=== PATIENT | female | born 1945 | race Caucasian/White ===

== ENCOUNTER → 2017-01-21 | Outpatient (CLI) | payer OTHER | LOC: BMCIMAGING 12:31 | PROVIDERS: ATTEND Internal Medicine | DX: Z12.31 Encounter for screening mammogram for malignant neoplasm of breast (principal) | CPT/HCPCS: G0202 ==

== ENCOUNTER 2017-09-10 15:52 | Emergency (ER) | payer OTHER ==
[2017-09-10] MEDS ORDERED: NS 500 ML IV ONE (16:36)
--- NOTE | 2017-09-10 16:39 | CPEKG ---
Heart Rate: 58 RR Interval: 1034 P-R Interval: 188 QRSD Interval: 114 QT Interval: 456 QTC Interval: 448 P [place]: 9 QRS [place]: 52 T Wave [place]: 32 EKG Severity - ABNORMAL ECG - EKG Impression: SINUS RHYTHM EKG Impression: NONSPECIFIC INTRAVENTRICULAR CONDUCTION DELAY Electronically Signed By: Mac Barrera 11-Sep-2017 06:53:04
--- NOTE | 2017-09-10 16:48 | EDPHY ---
HPI/HX/ROS/PE/MDM Narrative: CHIEF COMPLAINT: "I really have no idea," leg cramping, possible syncope HPI: The patient is a 72 y/o female with a history of syncopal episodes arriving with her complaining of bilateral leg cramping and dizziness following a possible syncopal episode while lying down this afternoon around 15: 00, about 2 hours ago. She says, "I was laying down and it was like I passed out , not like I fell asleep. I came to with a start and both of my legs and calves were in knots." She does not know how long she was unconscious for. She then sat up and felt dizzy like the room was spinning. She was eventually able to stand up, but then laid down on bathroom floor because of the dizziness. She then noticed her "heart beating hard" so she took an aspirin and found her . At this point she was nauseated and was noticed she was wet, but she's unsure if she was incontinent or lied down in water while in the bathroom. She also had some diffuse shakiness and tingling in toes and fingers bilaterally. Symptoms have improved somewhat, but she feels like she would be dizzy if she tried to stand up right now. She says, "right now my body is not my body. It's just not functioning well." No chest pain, balance issues, coordination issues, confusion, speech difficulty, vision changes, urinary symptoms, abdominal pain, vomiting, diarrhea. She denies prior history of [place], arrhythmias, or stroke. REVIEW OF SYSTEMS: Aside from elements discussed in the HPI, a comprehensive 10-point review of systems was reviewed and is negative. PMH: Hypertension, hyperlipidemia, syncopal episodes, right wrist surgery, appendectomy, c-sections x2, hysterectomy SOCIAL HISTORY: Former smoker. at bedside. Prior medical records reviewed including ED visit 02/06/15 for head injury. PHYSICAL EXAM: General:Patient is alert, in no acute distress. ENT:Eyes are normal to inspection. ENT inspection normal. Neck: Normal inspection. Full range of motion. Respiratory:No respiratory distress. Breath sounds normal bilaterally. Cardiovascular: Regular rate and rhythm. Strong peripheral pulses. Normal cap refill. Abdomen:The abdomen is nontender to palpation. There are no peritoneal signs. Back: Normal to inspection. No tenderness to palpation. Skin: Normal color. No rash. Warm and dry. Extremities: Normal appearance. Full range of motion. Neuro: Oriented x3. Normal motor function. Normal sensory function. No pronator drift. Normal [id number]. Normal [id number]. ED Course: This is a 72 y/o female presenting for evaluation of bilateral leg cramping, possible syncopal episode while lying down, and dizziness this afternoon. She has some difficulty clearly describing her symptoms, but does feel somewhat improved at this time. Her exam is unremarkable. Plan for IV, labs, EKG, head CT to rule out concerning causes for syncope & dizziness. The 12 lead EKG was interpreted by myself. Sinus mechanism rate 58. See hard copy and/or "tracemaster" electronic copy for interpretation. Head CT negative. Labs unremarkable. Reassessed patient and discussed work up. I've found no concerning causes for her symptoms. She has been able to walk through the department without issue and is currently asymptomatic. Offered admission for further investigation of symptoms, but she declined. She feels comfortable returning home and following up with her PCP next week for unimproved symptoms. Return precautions discussed. - Data Points Imaging Results: Imaging Impressions Head CT 09/10/17 17:35 Impression: Negative. No acute intracranial hemorrhage or evidence of ischemia. Findings discussed with Emergency Department physician, Hamlet Bonds MD at 09/10/2017 17:56. Imaging: Discussed imaging studies w/ internet sales associate Radiologist, I viewed and interpreted images myself Laboratory Results: Laboratory Results 09/10/17 17:13 09/10/17 17:13 09/10/17 09/10/17 09/10/17 17:13 17:13 17:12 WBC 9.48 10^3/uL 10^3/uL (3.80-9.50) RBC 4.91 10^6/uL 10^6/uL (4.18-5.33) Hgb 14.8 g/dL g/dL (12.6-16.3) Hct 43.1 % % (38.0-47.0) MCV 87.8 fL fL (81.5-99.8) MCH 30.1 pg pg (27.9-34.1) MCHC 34.3 g/dL g/dL (32.4-36.7) RDW 14.2 % % (11.5-15.2) Plt Count 373 10^3/uL 10^3/uL (150-400) MPV 9.3 fL fL (8.7-11.7) Neut % (Auto) 81.9 % H % (39.3-74.2) Lymph % (Auto) 12.2 % L % (15.0-45.0) [place] % (Auto) 5.0 % % (4.5-13.0) Eos % (Auto) 0.2 % L % (0.6-7.6) Baso % (Auto) 0.4 % % (0.3-1.7) Nucleat RBC Rel Count 0.0 % % (0.0-0.2) Absolute Neuts (auto) 7.76 10^3/uL H 10^3/uL (1.70-6.50) Absolute Lymphs (auto) 1.16 10^3/uL 10^3/uL (1.00-3.00) Absolute Monos (auto) 0.47 10^3/uL 10^3/uL (0.30-0.80) Absolute Eos (auto) 0.02 10^3/uL L 10^3/uL (0.03-0.40) Absolute Basos (auto) 0.04 10^3/uL 10^3/uL (0.02-0.10) Absolute Nucleated RBC 0.00 10^3/uL 10^3/uL (0-0.01) Immature Gran % 0.3 % % (0.0-1.1) Immature Gran # 0.03 10^3/uL 10^3/uL (0.00-0.10) Sodium 138 mEq/L mEq/L (135-145) Potassium 4.1 mEq/L mEq/L (3.3-5.0) Chloride 100 mEq/L mEq/L (97-110) Carbon Dioxide 19 mEq/l L mEq/l (22-31) Anion Gap 19 mEq/L H mEq/L (8-16) BUN 18 mg/dL mg/dL (7-23) Creatinine 0.9 mg/dL mg/dL (0.6-1.0) Estimated GFR > 60 Glucose 125 mg/dL H mg/dL (70-100) Calcium 10.6 mg/dL H mg/dL (8.5-10.4) POC Troponin I 0.01 ng/mL ng/mL (0.00-0.08) Medications Given: Discontinued Medications Sodium Chloride (Ns) 500 mls @ 0 mls/hr IV EDNOW ONE; Wide Open PRN Reason: Protocol Stop: 09/10/17 16:37 Last Admin: 09/10/17 17:26 Dose: 500 mls Point of Care Test Results: Chemistry 09/10/17 17:12 POC Troponin I 0.01 ng/mL ng/mL (0.00-0.08) General Time Seen by Provider: 09/10/17 16:34 Initial Vital Signs: Initial Vital Signs Temperature (C) 36.7 C 09/10/17 15:54 Heart Rate 69 09/10/17 15:54 Respiratory Rate 18 09/10/17 15:54 Blood Pressure 158/78 H 09/10/17 15:54 O2 Sat (%) 97 09/10/17 15:54 O2 Delivery Mode Room Air Allergies/Adverse Reactions: Sulfa (Sulfonamide Antibiotics) Allergy (Verified 09/10/17 15:53) Home Medications: Medication Instructions Recorded Aspirin 325 mg (OTC) 02/06/15 Aspirin 81mg (OTC) 02/06/15 Lisinopril 02/06/15 Clonidine 09/10/17 Hydrochlorothiazide 09/10/17 Metformin HCl 09/10/17 Departure - Departure Disposition: Home, Routine, Self-Care Clinical Impression: Dizziness Syncope Qualifiers: Syncope type: unspecified Qualified Code(s): R55 - Syncope and collapse Condition: Good Instructions: Syncope (ED), Dizziness (ED) Additional Instructions: Follow up with your primary care provider for unimproved symptoms over the weekend. Return to the ED for worsening of condition. Referrals: Niurka Pelaez MD [Primary Care Provider] - As per Instructions Report Scribed for: Hamlet Bonds Report Scribed by: Nuris Coates Date of Report: 09/10/17 Time of Report: 16:36 Physician Review and Approval Statement: Portions of this note were transcribed by an ED scribe. I personally performed the history, physical exam, and medical decision making; and confirm the accuracy of the information in the transcribed note.
[2017-09-10 17:28] LABS: PLATELET COUNT 373 10^3/uL (150-400)
[2017-09-10 17:53] VITALS: BP 167/85
== END 2017-09-10 18:13 | disposition home or self-care (01) ==
DX: R42 Dizziness and giddiness (principal); R55 Syncope and collapse; E86.9 Volume depletion, unspecified; I10 Essential (primary) hypertension; Z79.82 Long term (current) use of aspirin; Z87.891 Personal history of nicotine dependence
CPT/HCPCS: 84484-PO

== ENCOUNTER 2018-07-22 10:43 | Emergency (ER) | payer OTHER ==
[2018-07-22 11:24] LABS: PLATELET COUNT 358 10^3/uL (150-400)
--- NOTE | 2018-07-22 11:38 | EDPHY ---
H & P Stated Complaint: light headed, shakey, nausea, passed out at home at approx 0900 Time Seen by Provider: 07/22/18 11:04 HPI/ROS: CHIEF COMPLAINT: Syncope HISTORY OF PRESENT ILLNESS: 72-year-old female with diabetes presents after syncopal episode. She was eating an apple this morning, began to feel nauseated and went to the bathroom. She was sitting next to the toilet and next thing she remembers is waking up on the floor. She did not vomit, but continues to have intermittent nausea. She did not hurt herself when she slumped to the ground. No recent illness. No abdominal pain, vomiting, fever, chest pain or shortness of breath. REVIEW OF SYSTEMS: complete 10 point ROS reviewed and is negative except for the noted elements in the HPI - Personal History Current Tetanus/Diphtheria Vaccine: Unsure Current Tetanus Diphtheria and Acellular Pertussis (TDAP): Unsure - Medical/Surgical History Hx Asthma: No Hx Chronic Respiratory Disease: No Hx Diabetes: No Hx Cardiac Disease: No Hx Renal Disease: No Hx Cirrhosis: No Hx Alcoholism: No Hx HIV/AIDS: No Hx Splenectomy or Spleen Trauma: No Other PMH: PMH- HLD, HTN - Family History Significant Family History: No pertinent family hx - Social History Smoking Status: Former smoker Alcohol Use: Sober Additional Social History: - Physical Exam Exam: General Appearance: Alert, pleasant and talkative Eyes: Pupils equal and round, no conjunctival pallor or injection ENT, Mouth: Mucous membranes moist Neck: Normal inspection Respiratory: Lungs are clear to auscultation Cardiovascular: Regular rate and rhythm Gastrointestinal: Abdomen is soft and nontender Neurological: A&O, nonfocal exam Skin: Warm and dry Extremities: Normal inspection Psychiatric: Mood and affect normal Constitutional: Initial Vital Signs Temperature (C) 36.6 C 07/22/18 10:45 Heart Rate 67 07/22/18 10:45 Respiratory Rate 14 07/22/18 10:45 Blood Pressure 159/95 H 07/22/18 10:45 O2 Sat (%) 98 07/22/18 10:45 O2 Delivery Mode Room Air Allergies/Adverse Reactions: Sulfa (Sulfonamide Antibiotics) Allergy (Verified 09/10/17 15:53) Home Medications: Medication Instructions Recorded Aspirin 325 mg (OTC) 02/06/15 Aspirin 81mg (OTC) 02/06/15 Lisinopril 02/06/15 Clonidine 09/10/17 Hydrochlorothiazide 09/10/17 Metformin HCl 09/10/17 Ondansetron Odt [Zofran Odt 4 mg 4 mg PO Q4 PRN #6 tab 07/22/18 (*)] Medical Decision Making - Diagnostics EKG Interpretation: EKG interpreted by me reveals normal sinus rhythm, rate 71, IVCD, borderline T- wave changes in leads V2 and V3. Interpretation: Abnormal EKG ED Course/Re-evaluation: This patient presents after syncopal episode, most likely vasovagal in etiology. Stat EKG reveals no evidence of ischemia or dysrhythmia. IV normal saline 500 mL given. The patient was a bear in the emergency department. mattress stripper revealed normal sinus rhythm throughout. Laboratory studies unremarkable. On discharge, she was able to walk with a steady gait and was not dizzy. She declined Zofran throughout, though had intermittent slight nausea. I wrote a prescription for Zofran to take as needed. Warning signs discussed for syncope, including need to return for recurrent syncopal episode. Differential Diagnosis: Differential diagnosis includes though is not limited to cardiac dysrhythmia, CVA, TIA, GI bleed, sepsis, hypoglycemia. - Data Points Laboratory Results: Laboratory Results 07/22/18 11:05 07/22/18 11:05 Medications Given: Discontinued Medications Sodium Chloride (Ns) 500 mls @ 1,000 mls/hr IV EDNOW ONE PRN Reason: Protocol Stop: 07/22/18 12:12 Last Admin: 07/22/18 11:50 Dose: 500 mls Point of Care Test Results: Chemistry 07/22/18 11:11 POC Troponin I 0.00 ng/mL ng/mL (0.00-0.08) Departure - Departure Disposition: Home, Routine, Self-Care Clinical Impression: Syncope Qualifiers: Syncope type: vasovagal syncope Qualified Code(s): R55 - Syncope and collapse Condition: Good Instructions: Syncope (ED) Additional Instructions: Drink plenty of fluids. Return for recurrent symptoms or any concerns. Take Zofran as needed for nausea. Referrals: Niurka Pelaez MD [Primary Care Provider] - As per Instructions Prescriptions: Ondansetron Odt [Zofran Odt 4 mg (*)] 4 mg PO Q4 PRN #6 tab PRN Reason: Nausea
[2018-07-22] MEDS ORDERED: NS 500 ML IV ONE (11:43)
[2018-07-22 12:54] VITALS: BP 162/76
--- NOTE | 2018-07-22 14:43 | CPEKG ---
Test Reason : OPEN Blood Pressure : / mmHG Vent. Rate : 071 BPM Atrial Rate : 071 BPM P-R Int : 168 ms QRS Dur : 118 ms QT Int : 439 ms P-R-T Axes : 017 062 023 degrees QTc Int : 478 ms Sinus rhythm Nonspecific intraventricular conduction delay Borderline T abnormalities, anterior leads Confirmed by Sondra Bonds ([id number]) on 07/22/2018 2:43:28 PM Referred By: Sondra Bonds Confirmed By:Sondra Bonds
== END 2018-07-22 12:58 | disposition home or self-care (01) ==
DX: R55 Syncope and collapse (principal); E86.9 Volume depletion, unspecified; I10 Essential (primary) hypertension; E78.5 Hyperlipidemia, unspecified; Z87.891 Personal history of nicotine dependence
CPT/HCPCS: 84484-ER